=== PATIENT | male | born 1985 | race African-American/Black ===

== ENCOUNTER 2021-04-14 09:55 | Outpatient (REF) | payer OTHER, SELFPAY | END 2021-04-14 09:56 | disposition home or self-care (01) | LOC: HO.LAB 09:55 | PROVIDERS: Visit Provider Internal Medicine | DX: Z20.822 Contact with and (suspected) exposure to COVID-19 (principal) | CPT/HCPCS: C9803; U0003; U0005 ==

== ENCOUNTER 2021-05-05 15:43 | Emergency (ER) | payer OTHER, SELFPAY ==
--- NOTE | ~2021-05-05 | XR_ITS ---
EXAMINATION: XR FINGER, RIGHT CLINICAL INFORMATION: Laceration COMPARISON: None TECHNIQUE: Three views of the right fifth finger. FINDINGS: Alignment is normal. No fracture or dislocation is seen. Joint spaces are normal. There is soft tissue swelling adjacent to the middle phalanx. No soft tissue foreign body is seen. XR/XR finger RT min 2V IMPRESSION: Soft tissue swelling. No fracture or foreign body seen.
[2021-05-05 16:00] VITALS: BP 126/83; PULSE 89; RESP 18; TEMP 36.8; O2SAT 100; BMI 35.6
--- NOTE | 2021-05-05 16:41 | ED_ITS ---
HPI - Wound/Laceration General Chief Complaint: Wound/Laceration Stated Complaint: finger lac Time Seen by Provider: 05/05/21 16:26 Source: patient Mode of arrival: ambulatory Limitations: no limitations History of Present Illness HPI narrative: Patient got a laceration from the hedge tremor to his right 5th finger although to the bone able to move his finger loss sensation to tip of the finger no other injuries unknown last tetanus shot Related Data Previous Rx's Medication Instructions Recorded cephalexin 500 mg capsule 500 mg PO QID 10 Days #40 cap 05/05/21 doxycycline hyclate 100 mg tablet 100 mg PO BID #20 tab 05/05/21 ibuprofen 600 mg tablet 600 mg PO Q6H PRN #20 tab 05/05/21 Allergies Allergy/AdvReac Type Severity Reaction Status Date / Time No Known Allergies Allergy Verified 05/05/21 16:45 Review of Systems Review of Systems: Yes all other systems are reviewed and are negative [facility] Social History Social History Advance Directives: No Advance Directives Information Provided: No Physical Exam Vital Signs: Vital Signs: Last Vital Signs Temp 98.2 F 05/05/21 16:00 Pulse 89 05/05/21 16:00 Resp 18 05/05/21 16:00 BP 126/83 05/05/21 16:00 Pulse Ox 100 05/05/21 16:00 Body Mass Index 35.6 Const: General: cooperative and comfortable HENMT: Head: Yes normocephalic Extrem: Hand/finger images: 1. 3 cm long deep laceration on the lateral aspect of right 5th digit at interphalangeal joint tendons are intact loss of sensation to tip of the finger extensor tendons are intact Procedures Laceration Laceration 1: Site: hand (Right 5th digit) Side (If applicable): right Size (cm): 3 Description: linear Depth: simple, single layer Local Anesthetic: lidocaine 2% Amount of anesthesia used (mL): 4 Skin layer closed with: vicryl Size (cm): 5-0 Number of sutures: 11 Technique: simple, interrupted Subcutaneous layer closed with: chromic gut Size: 5-0 Number of sutures: 3 Technique: simple, interrupted Discharge Plan Discharge Clinical Impression: Laceration Patient Disposition: Home, Self-Care Instructions: Finger Laceration (ED) Additional Instructions: Local care as advised Suture removal in 2 weeks Take antibiotics to avoid infection Report to the ER if increased swelling/ pus discharge/ redness Prescriptions: New cephalexin 500 mg capsule 500 mg PO QID 10 Days Qty: 40 RF: 0 doxycycline hyclate 100 mg tablet 100 mg PO BID Qty: 20 RF: 0 ibuprofen 600 mg tablet 600 mg PO Q6H PRN (Reason: pain) Qty: 20 RF: 0
[2021-05-05] MEDS: Lidocaine HCl 2 % MPF 5 ML VIAL INFILTRATI (18:11)
[2021-05-05] MEDS: Diphth,Pertus(ACell),Tet Adult 0.5 ML SYRINGE IM (18:12)
[2021-05-05] MEDS: cephALEXin 500 MG CAPSULE PO (18:12)
== END 2021-05-05 18:21 | disposition home or self-care (01) ==
PROVIDERS: Emergency Provider Internal Medicine; PCP Internal Medicine
DX: S61.216A Laceration without foreign body of right little finger without damage to nail, initial encounter (principal); S60.416A Abrasion of right little finger, initial encounter; M79.641 Pain in right hand; W26.9XXA Contact with unspecified sharp object(s), initial encounter; Y93.9 Activity, unspecified; Y92.9 Unspecified place or not applicable; Y99.9 Unspecified external cause status; Z79.899 Other long term (current) drug therapy
CPT/HCPCS: 12002; 73140; 90471; 90715; 99283; 99284

== ENCOUNTER 2022-02-15 01:29 | Emergency (ER) | payer OTHER, SELFPAY ==
[2022-02-15 01:37] VITALS: BP 127/85; PULSE 90; RESP 18; TEMP 36.1; O2SAT 98; BMI 36.3
--- NOTE | 2022-02-15 02:59 | ED.SKABFB ---
HPI - Skin/Abscess/Foreign Bdy General Chief complaint: Skin/Abscess/Foreign Body Stated complaint: abscess/bug bite? Time Seen by Provider: 02/15/22 02:59 History of Present Illness HPI narrative: Patient is a 36-year-old male presents today with having a skin lesion in the lower occipital area of his head. No fever no chills no systemic complaints. Patient from home. question bug bite. Question minimal discharge from the wound. Related Data Previous Rx's Medication Instructions Recorded cephalexin 500 mg capsule 500 mg PO QID 10 days #40 caps 05/05/21 doxycycline hyclate 100 mg tablet 100 mg PO BID #20 tabs 05/05/21 ibuprofen 600 mg tablet 600 mg PO Q6H PRN pain #20 tabs 05/05/21 doxycycline hyclate 100 mg capsule 100 mg PO BID cough 7 days #14 caps 02/15/22 Allergies Allergy/AdvReac Type Severity Reaction Status Date / Time No Known Allergies Allergy Verified 05/05/21 16:45 Review of Systems Review of Systems: No fever no chills no systemic complaints Yes all other systems are reviewed and are negative [facility] Past Medical History Attestation statement: The following information was validated with the patient. Social History Social History Advance Directives: No Physical Exam Vital Signs: Vital Signs: Last Vital Signs Temp 97.0 F 02/15/22 01:37 Pulse 90 02/15/22 01:37 Resp 18 02/15/22 01:37 BP 127/85 02/15/22 01:37 Pulse Ox 98 02/15/22 01:37 O2 Del Method 02/15/22 01:37 BMI result Body Mass Index 36.3 Appearance: Alert. Oriented X3. No acute distress. Eyes: Pupils equal, round and reactive to light. ENT: Pharynx normal. Neck: Normal inspection. Neck supple. No lymph nodes noted. No crepitus CVS: Normal heart rate and rhythm. Pulses normal. Normal S1 and S2 Respiratory: No respiratory distress. Breath sounds normal. No Wheezing. No rales Abdomen: Soft and nontender. No rigidity. No distention. good BS x4 Skin: Positive indurated area in the occipital area approximately 3 cm x 3 cm in size. No fluctuance palpable. Area that looks like it previously drained some purulent material. Extremities: No lower extremity edema. Neurovascular intact to all extremities. No Lacerations. No Rash Neuro: Oriented X 3. No motor deficit. No sensory deficit. Moving all extermities. No slurred speech Discharge Plan Discharge Clinical Impression: Cellulitis Patient Disposition: Home, Self-Care Instructions: Cellulitis (ED) Prescriptions: New doxycycline hyclate 100 mg capsule 100 mg PO BID 7 Days Qty: 14 0RF No Action cephalexin 500 mg capsule 500 mg PO QID 10 Days Qty: 40 0RF doxycycline hyclate 100 mg tablet 100 mg PO BID Qty: 20 0RF ibuprofen 600 mg tablet 600 mg PO Q6H PRN (Reason: pain) Qty: 20 0RF Referrals: Gage Lopez MD [Primary Care Provider] -
== END 2022-02-15 03:22 | disposition home or self-care (01) ==
PROVIDERS: Emergency Provider Emergency Medicine Emergency Medical Services; PCP Internal Medicine
DX: L03.811 Cellulitis of head [any part, except face] (principal); Z79.899 Other long term (current) drug therapy
CPT/HCPCS: 99282; 99283

== ENCOUNTER 2022-05-08 19:38 | Emergency (ER) | payer OTHER, SELFPAY ==
[2022-05-08 20:03] VITALS: BP 126/81; PULSE 79; RESP 16; TEMP 36.6; O2SAT 99; BMI 35.6
--- NOTE | 2022-05-08 22:36 | ED_ITS ---
HPI - Medical Clearance General Chief complaint: Medical Clearance Stated complaint: HIV (wants test) Time Seen by Provider: 05/08/22 22:36 Source: patient Mode of arrival: ambulatory Limitations: no limitations History of Present Illness HPI Narrative: Patient is a 36 year old male presenting to the emergency department today requesting to be tested for HIV. Patient states that he has concerns that his has exposed him to something and more specifically, he's worried about being exposed to HIV. Patient would like to be tested for it despite not having any symptoms. Patient states that to his knowledge, his isn't actively infected with anything but he is worried because of some rumors at work he is hearing. Patient denies any dizziness, lightheadedness, abdominal pain, nausea, vomiting, fever, chills, blurry vision, double vision, loss of vision, chest pain, difficulty breathing, shortness of breath, back pain, night sweats, pain with urination, increased urinary frequency, increased urinary urgency, blood in his urine or stool, syncope or a near syncopal episode, recent trauma or falls, bowel incontinence, bladder incontinence, bowel retention, bladder retention, or any other complaints at this time. Associated Symptoms: denies other symptoms Treatments Prior to Arrival: none Related Information Previous Rx's Medication Instructions Recorded cephalexin 500 mg capsule 500 mg PO QID 10 days #40 caps 05/05/21 doxycycline hyclate 100 mg tablet 100 mg PO BID #20 tabs 05/05/21 ibuprofen 600 mg tablet 600 mg PO Q6H PRN pain #20 tabs 05/05/21 doxycycline hyclate 100 mg capsule 100 mg PO BID cough 7 days #14 caps 02/15/22 Allergies Allergy/AdvReac Type Severity Reaction Status Date / Time No Known Allergies Allergy Verified 05/05/21 16:45 Review of Systems Constitutional: Constitutional: Reports no additional constitutional complaints, Denies chills, Denies fever(s) and Denies night sweats Eyes: Eyes: Reports no additional eye complaints, Denies blurry vision, Denies change in vision, Denies diplopia, Denies eye discharge, Denies loss of vision and Denies eye pain ENT: Denies dizziness Cardiovascular: Cardiovascular: Reports no additional cardiovascular complaints, Denies chest pain, Denies lightheadedness, Denies Loss of Consciousness and Denies dyspnea Respiratory: Respiratory: Reports no additional respiratory complaints and Denies dyspnea Gastrointestinal: Gastrointestinal: Reports no additional gastrointestinal complaints, Denies abdominal pain, Denies melena, Denies hematochezia, Denies change in bowel habits and Denies change in stool character Genitourinary: Genitourinary: Reports no additional male genitourinary complaints, Denies hematuria, Denies oliguria, Denies difficulty urinating, Denies dysuria, Denies urinary frequency, Denies urinary hesitancy, Denies urinary incontinence and Denies urinary urgency Musculoskeletal: Musculoskeletal: Reports no additional musculoskeletal complaints, Denies numbness and Denies tingling Neurologic: Denies dizziness, Denies loss of vision, Denies numbness and Denies tingling Psychiatric: Psychiatric: Reports no additional psychiatric complaints Endocrine: Endocrine: Reports no additional endocrine complaints Hematologic/Lymphatic: Hematologic/Lymphatic: Reports no additional hematologic/lymphatic complaints Allergic/Immunologic: Allergic/Immunologic: Reports no additional allergic/immunologic complaints PMFSH Past Medical History Attestation statement: The following information was validated with the patient. Source: old records reviewed Social History Social History Advance Directives: No Advance Directives Information Provided: Yes Physical Exam Vital Signs: Vital Signs: Last Vital Signs Temp 97.9 F 05/09/22 00:00 Pulse 68 05/09/22 00:00 Resp 16 05/09/22 00:00 BP 132/57 L 05/09/22 00:00 Pulse Ox 97 05/09/22 00:00 O2 Del Method 05/09/22 00:00 BMI result Body Mass Index 35.6 Const: General: cooperative, no acute distress, alert and awake Nutritional Appearance: well nourished Orientation/consciousness: patient oriented x3 Limitations: no limitations HEENT: Head: Yes normal to inspection and Yes atraumatic Ears: hearing gr ossly normal bilaterally and external ears normal General nose exam: Normal external nose present, no nasal discharge noted and no epistaxis Face and sinus: Yes normal facial exam, No abrasion and No laceration Mouth: Normal oral and palatal mucosa present, no drooling and no muffled voice Eyes: General: appearance normal, both eyes and all related structures Periorbital: periorbital findings normal Eyelids: Yes eyelids normal Conjunctivae: conjunctivae normal Pupils: Equal, round and reactive pupils present EOM: EOMs intact bilaterally Neck: Neck: Yes normal visual inspection, Yes full ROM and Yes no lymphadenopathy Chest: Chest palpation & inspection: normal inspection of the chest Resp: Effort & Inspection: normal respiratory effort and able to speak in c omplete sentences Auscultation: clear to auscultation bilaterally Cardio: Rate: regular rate Rhythm: regular rhythm GI: Inspection: Yes normal to inspection Palpation (GI): Soft to palpation, not firm, nontender, no guarding and not rigid Neuro: General: patient oriented x3 and moves all extremities Cranial nerves: Yes Equal, round and reactive pupils present Cognition (Neuro): normal cognition Motor exam (neuro): 5/5 motor strength present throughout Sensory Exam: Normal double simultaneous stimulation for sensation Coordination: [id number] test normal Extrem: General: Yes normal to inspection, Yes full ROM and Yes capillary refill normal Psych: Appearance: grossly normal Mental Status: mental status grossly normal Affect: normal affect Attitude: cooperative Thought process: Normal thought process present Thought content: Normal thought content present Insight: Good insight present (Psych) MDM - Medical Clearance MDM Narrative Medical decision making narrative: Patient is a 36 year old male presenting to the emergency department today requesting HIV testing. Patient's physical exam was unremarkable. Patient's blood work is pending. Patient refused to give a urine sample. I explained my physical exam findings as to the patient. I answered all questions asked by the patient. Patient was irate that he had waited in the waiting room for so long and won't have results tonight. I explained to the patient that we would call him with any positive results but that there is no way for us to run his blood work tonight because the individual who runs those tests, is not currently on shift and won't be until the morning. I stressed the importance of the patient taking his medication as prescribed. I stressed the importance of the patient following up with his primary care provider. I stressed the importance of the patient returning to the emergency department immediately if his symptoms were to worsen or if he were to develop any dizziness, shortness of breath, difficulty breathing, chest pain, blurry vision, loss of vision, nausea, vomiting, abdominal pain, fever, chills, back pain, or any other complaints. Patient verbalized agreement and understanding with this treatment plan and discharge. Medical Records Attestation: I reviewed the patient's medical records. Discharge Plan Discharge Clinical Impression: Exposure to HIV Patient Disposition: Home, Self-Care Additional Instructions: We will call you if any of your results are positive. Follow up with your [facility] provider. Return to the emergency department immediately if your symptoms worsen or if you develop any dizziness, shortness of breath, difficulty breathing, chest pain, blurry vision, loss of vision, nausea, vomiting, abdominal pain, fever, chills, back pain, or any other complaints. Prescriptions: No Action cephalexin 500 mg capsule 500 mg PO QID 10 Days Qty: 40 0RF doxycycline hyclate 100 mg tablet 100 mg PO BID Qty: 20 0RF ibuprofen 600 mg tablet 600 mg PO Q6H PRN (Reason: pain) Qty: 20 0RF doxycycline hyclate 100 mg capsule 100 mg PO BID 7 Days Qty: 14 0RF Referrals: [facility] [Provider Group] (Call to establish and follow up with a primary care provider. If you already have a primary care provider, please follow up with them. ) [facility] [Provider Group] (Call to establish and follow up with a primary care provider. If you already have a primary care provider, please follow up with them. ) [facility] [Provider Group] (Call to establish and follow up with a primary care provider. If you already have a primary care provider, please follow up with them. ) Stand Alone Forms: Work/School Release Interventions: ED Discharge Assessment Last Done: 05/09/22 00:17 Print Language: Sami
[2022-05-09] VITALS: BP 132/57; PULSE 68; RESP 16; TEMP 36.6; O2SAT 97
--- NOTE | 2022-05-09 00:28 | PC.NURSE ---
pt upset with not being able to obtain his lab results at this time. pt teaching with provider, and this rn about the way the tests are processed. pt did not provide a urine and was offered to give a sample but those results would not be ready for him. pt is concerned about his work status and needing a note for tonight. night warehouse selector also aware (Flavia).
[2022-05-09 08:36] LABS: HBS Num1 > 1000.00 mIU/mL (0-7.99); HIV AB/AG Nonreactive (Nonreactive); Hepatitis B Core Antibody Nonreactive (Nonreactive); Hepatitis B Surface Antigen Negative (Negative); ~HepC Num1 0.11 S/CO (0.00-0.79); ~Hepatitis B Surface Antibody REACTIVE (Nonreactive); ~Hepatitis C Antibody Nonreactive (Nonreactive)
[2022-05-09 14:23] LABS: HBc Num1 0.08 S/CO (0.00-0.79); HBsAGNum1 0.24 S/CO (0.00-0.99); HIV Num 1 0.07 S/CO (0.00-0.99)
== END 2022-05-09 00:30 | disposition home or self-care (01) ==
PROVIDERS: Physician Assistant Medical; Emergency Provider Internal Medicine
DX: Z20.6 Contact with and (suspected) exposure to human immunodeficiency virus [HIV] (principal); Z79.899 Other long term (current) drug therapy
CPT/HCPCS: 36415; 86704; 86706; 86803; 87340; 87389; 99283

== ENCOUNTER 2024-06-05 09:13 | Day surgery (SDC) | payer OTHER, SELFPAY ==
[2024-06-05] VITALS (7 sets, daily range): BP systolic 121–137; BP diastolic 75–88; PULSE 61–87; RESP 15–16; TEMP 36.3–36.6; O2SAT 96–99; BMI 33.4
[2024-06-05] MEDS: Lactated Ringers 1,000 ML 100 ML IVCONT (09:58)
--- NOTE | 2024-06-05 10:04 | PC.NURSE ---
anesthesia already made aware of farxiga last dose not a full 3 days. took monday about 7pm. pt aware of increased risk and anesthesia agreed to proceed. pt requesting to go ahead.
[2024-06-05 10:05] LABS: Glucose, Whole Blood 227 mg/dL (60-115)
--- NOTE | 2024-06-05 10:50 | P.CONAN_ITS ---
Documented by User: Eula Frost NP 06/04/24 11:02 HPI - Anesthesia Eval Consult details Narrative: 38yo M for Left Lateral and Medial Eye Muscle Recession Medically optimized per PCP Anesthesia Pre-Procedure Meds Is the patient on any of the following meds?: GLP1/DPP4 and SGLT2 Inhib PMFSH Past Medical History Medical History (Updated 06/05/24 @ 09:26 by Maris Rogel, RN) Smoker Diabetes Obese Lumbar disc herniation Depression Hyperlipidemia Surgical History Surgical History (Updated 06/05/24 @ 09:27 by Maris Rogel RN) History of surgery on arm No pertinent past surgical history Social History Social History Patient Tobacco Use Status: Current everyday Tobacco user Tobacco use type: Cigarette Cigarettes Per Day: 20 Use of substances other than those prescribed or required for medical reasons: Yes Substance Use Type Other:: last smoked about 4-5 days ago Substance Use Frequency: Occasionally Are you DNR?: No Advance Directives: No Advance Directives Information Provided: Yes Recently lost weight without trying: No Meds Allergies Allergy/AdvReac Type Severity Reaction Status Date / Time No Known Allergies Allergy Verified 06/05/24 09:26 Home Medications ?Medication ?Instructions ?Recorded ?Confirmed ?Last Taken ?Type alprazolam 0.25 mg tablet 0.25 mg PO TID PRN anxiety 06/04/24 06/04/24 Unknown History dapagliflozin propanediol 10 mg 10 mg PO DAILY 06/04/24 06/04/24 06/02/24 19:00 History tablet (Farxiga) metformin 500 mg tablet,extended 500 mg PO BID 06/04/24 06/04/24 Unknown History release 24 hr semaglutide 0.25 mg or 0.5 mg (2 mg subcut 06/04/24 05/22/24 History mg/3 mL) subcutaneous pen injector (Ozempic) Assessment and Plan Assessment Anesthesia Assessment: Chart Reviewed Documented by User: Maris Hebert DO 06/05/24 11:16 HPI - Anesthesia Eval Anesthesia Pre-Procedure Meds Is the patient on any of the following meds?: GLP1/DPP4 and SGLT2 Inhib If yes to any meds - educate patient: Pt education - increased risk of aspiration and/or euvolemic DKA [facility] Past Medical History Medical History (Updated 06/05/24 @ 09:26 by Maris Rogel, RN) Smoker Diabetes Obese Lumbar disc herniation Depression Hyperlipidemia Family History Family history of problems with anesthesia: No Surgical History Surgical History (Updated 06/05/24 @ 09:27 by Maris Rogel, NICOLASA) History of surgery on arm No pertinent past surgical history History of Problems with Anesthesia: No Social History Social History Patient Tobacco Use Status: Current everyday Tobacco user Tobacco use type: Cigarette Cigarettes Per Day: 20 Use of substances other than those prescribed or required for medical reasons: Yes Substance Use Type Other:: last smoked about 4-5 days ago Substance Use Frequency: Occasionally Are you DNR?: No Advance Directives: No Advance Directives Information Provided: Yes Recently lost weight without trying: No Meds Allergies Allergy/AdvReac Type Severity Reaction Status Date / Time No Known Allergies Allergy Verified 06/05/24 09:26 Home Medications ?Medication ?Instructions ?Recorded ?Confirmed ?Last Taken ?Type alprazolam 0.25 mg tablet 0.25 mg PO TID PRN anxiety 06/04/24 06/04/24 Unknown History dapagliflozin propanediol 10 mg 10 mg PO DAILY 06/04/24 06/04/24 06/02/24 19:00 History tablet (Farxiga) metformin 500 mg tablet,extended 500 mg PO BID 06/04/24 06/04/24 Unknown History release 24 hr semaglutide 0.25 mg or 0.5 mg (2 mg subcut 06/04/24 05/22/24 History mg/3 mL) subcutaneous pen injector (Ozempic) Exam Exam Date and Time: 06/05/24 1050 Height,Weight and Vital Signs: Height 6 ft 1 in Weight 114.759 kg Vital Signs Temperature 97.8 F 06/05/24 09:57 Pulse Rate 87 06/05/24 09:57 Respiratory Rate 15 06/05/24 09:57 Blood Pressure 131/80 06/05/24 09:57 Pulse Oximetry 96 06/05/24 09:57 Oxygen Delivery Method Room Air 06/05/24 09:57 Temperature 97.8 F 06/05/24 09:57 Pulse Rate 87 06/05/24 09:57 Respiratory Rate 15 06/05/24 09:57 Blood Pressure 131/80 06/05/24 09:57 Pulse Oximetry 96 06/05/24 09:57 Oxygen Delivery Method Room Air 06/05/24 09:57 Airway Mallampati Class: I TM Dist: >3cm Neck ROM: Full Loose/Missing/Broken Teeth: No (patient denies any loose or broken teeth) Heart: S1S2 Lungs: CTAB Assessment and Plan Assessment Anesthesia Assessment: Anesthesia Plan Discussed and Chart Reviewed Final Anesthetic Review Family History of Problems with Anesthesia: No History of Problems with Anesthesia: No NPO: Yes ASA Class: II Final Preanesthetic Review: No Changes in Pt Med Stat, Meds/Allgs Chart Reviewed, Consent Obtained/Reviewed and Anes Risks/Benef Reviewed Patient Risk: Low Procedure Risk: Low Anesthetic Plan Anesthetic Plan: GA and Agree w/ Assess. and Plan Disposition: Standard PACU
[2024-06-05] MEDS: oxyCODONE HCl Immed Release 5 MG TABLET PO (12:14)
[2024-06-05] MEDS: Acetaminophen 325 MG TABLET 650 MG PO (12:14)
--- NOTE | 2024-06-05 12:18 | P.OPHTHAL_ITS ---
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 Procedures 1. Recession of left lateral rectus 3 mm 2. Resection of left medial rectus [address] Garrett. Anesthesia general. Complications none. The patient was brought to the operative room placed under general anesthesia. The eyes were prepped and draped in the usual sterile ophthalmic fashion. A lid speculum was placed in the left eye and a peritomy was created around the lateral rectus muscle. The muscle was hooked and secured with a double-armed Vicryl suture. It was disinserted from the globe and reattached to a position 3 mm behind the original insertion. Conjunctiva was closed with interrupted Vicryl sutures. A peritomy was then created around the medial rectus muscle. The muscle was hooked and grasped at the insertion with a muscle clamp. The overlying fascial attachments were dissected free and a 7 mm resection was marked and secured with a double- armed Vicryl suture. The distal muscle was resected and the resection point drawn forward to the insertion using the Vicryl suture. Conjunctiva was closed with interrupted Vicryl sutures. The patient was then awoken from general anesthesia and discharged to postoperative recovery in good condition.
== END 2024-06-05 13:44 | disposition home or self-care (01) ==
PROVIDERS: PCP Internal Medicine; Visit Provider Ophthalmology
PROC: (CPT 67312; principal; 2024-06-05 12:00)
DX: H49.02 Third [oculomotor] nerve palsy, left eye (principal); H50.9 Unspecified strabismus; E78.5 Hyperlipidemia, unspecified; F32.A Depression, unspecified; E11.65 Type 2 diabetes mellitus with hyperglycemia; Z91.148 Patient's other noncompliance with medication regimen for other reason; E66.811 Obesity, class 1; Z68.33 Body mass index [BMI] 33.0-33.9, adult; M51.26 Other intervertebral disc displacement, lumbar region; Z79.84 Long term (current) use of oral hypoglycemic drugs; Z79.85 Long-term (current) use of injectable non-insulin antidiabetic drugs; Z79.899 Other long term (current) drug therapy
CPT/HCPCS: 67312; 82947; J1100; J1596; J1885; J2003; J2250; J2405; J2704; J3010

== ENCOUNTER 2025-05-20 10:53 | Emergency (ER) | payer MEDICAID, SELFPAY ==
--- NOTE | ~2025-05-20 | XR_ITS ---
EXAMINATION: XR LUMBOSACRAL SPINE CLINICAL INFORMATION: pain radiating down R leg COMPARISON: None available. TECHNIQUE: Three views of the lumbosacral spine. FINDINGS: There is normal lumbar lordosis. The vertebral heights and alignment are normal. Is mild loss of L5-S1 disc height. Rest the disc heights are normal. There is no visible acute fracture, dislocation or subluxation seen. The SI joints are symmetrical and normal. No lytic or sclerotic process seen. The soft tissues are normal. XR/XR lumbar spine 2-3V IMPRESSION: Mild degenerative disc changes L5-S1 disc level. Otherwise unremarkable lumbar spine exam. Electronically signed by: Flex Aranda MD 05/20/2025 11:32 AM EDT
--- NOTE | 2025-05-20 11:00 | ED.GENADULT ---
HPI - General Adult General Chief complaint: Back Pain/Injury Stated complaint: lower back pain radiating to legs Time Seen by Provider: 05/20/25 14:42 Source: patient and old records reviewed Mode of arrival: ambulatory Limitations: no limitations History of Present Illness ED Provider: ALLEN BRAR narrative: 39 yo male with PMH of anxiety and DM here with c/o R sided low back pain x 2 days radiating down from buttock to back of leg. No numbness, weakness, no loss of bowel/bladder, no saddle anesthesia. No IVDA, no thinners. No recent fevers. He notes he urinates frequently. MD complaint: sciatica Onset (ago): day(s) (2) Location: back Radiation: extremity Quality: stabbing Relieving factors: immobilization Exacerbating factors: movement Associated symptoms: denies other symptoms Treatments prior to arrival: NSAID Related Data Home Medications ?Medication ?Instructions ?Recorded ?Confirmed alprazolam 0.25 mg tablet 0.25 mg PO TID PRN anxiety 06/04/24 06/04/24 dapagliflozin propanediol 10 mg 10 mg PO DAILY 06/04/24 06/04/24 tablet (Farxiga) metformin 500 mg tablet,extended 500 mg PO BID 06/04/24 06/04/24 release 24 hr semaglutide 0.25 mg or 0.5 mg (2 mg subcut 06/04/24 mg/3 mL) subcutaneous pen injector (Ozempic) Previous Rx's ?Medication ?Instructions ?Recorded diazepam 5 mg tablet (Valium) 5 mg PO TID PRN muscle spasm #10 05/20/25 tabs ibuprofen 600 mg tablet 600 mg PO Q6H PRN pain #30 tabs 05/20/25 lidocaine 5 % topical patch 1 patch topical DAILY #30 ea 05/20/25 Allergies Allergy/AdvReac Type Severity Reaction Status Date / Time No Known Allergies Allergy Verified 05/20/25 11:02 Review of Systems Review of Systems: Constitutional : No Weight loss, No Fever, No Chills, ENT/Mouth : No Hearing loss, No Ear Pain, No Nasal Congestion, No Sinus Pain, No Hoarseness, No sore throat, No Rhinorrhea, No Swallowing Difficulty Cardiovascular : No Chest Pain, No SOB Respiratory : No Cough, No Dyspnea Gastrointestinal : No Nausea, No Vomiting, No Diarrhea, No abdominal Pain, No Hematochezia, No Melena Genitourinary : No Dysuria, No Urinary Frequency, No Hematuria, No Urinary Incontinence, Musculoskeletal : positive back pain Skin : No Skin Lesions, No rash Neuro : No Weakness, No Numbness, No Paresthesias, no loss of bowel or bladder incontinence, no saddle anesthesia Yes all other systems are reviewed and are negative [facility] Past Medical History Attestation statement: The following information was validated with the patient. Source: old records reviewed Medical History Smoker Diabetes Obese Lumbar disc herniation Depression Hyperlipidemia Surgical History History of surgery on arm No pertinent past surgical history Social History Social History Patient Tobacco Use Status: Current everyday Tobacco user Tobacco use type: Cigarette Cigarettes Per Day: 20 Advance Directives: No Advance Directives Information Provided: Yes Do you have a plan to hurt others: No Plan Physical Exam ED Vital Signs: Vital Signs - 24 hr 05/20/25 11:01 05/20/25 16:09 Temperature 98 F 98 F Pulse Rate 86 86 Respiratory Rate 18 18 Blood Pressure 145/93 H 145/93 H Pulse Oximetry 98 98 Oxygen Delivery Method Room Air Room Air BMI result Body Mass Index 35.6 Appearance: Alert. Oriented X3. No acute distress. Eyes: Pupils equal, round and reactive to light. ENT: Pharynx normal. Neck: Normal inspection. Neck supple. CVS: Normal heart rate and rhythm. Pulses normal. Respiratory: No respiratory distress. Breath sounds normal. Abdomen: Soft and nontender. Back: ttp long R PSIS area and buttock Skin: Skin warm and dry. Normal skin color. Extremities: No lower extremity edema. Neuro: Oriented X 3. No motor deficit. No sensory deficit. L5 5/5 bilaterally SILT intact 2+ DTR in patella and achilles, pulses intact Course Course Course Narrative: This is a rapid medical exam performed by Abdullahi Brumfield NP: Additional HPI, ROS, PE not included below will be deferred to primary provider. Patient is a 39y/o M with pmhx T2DM presenting with complaint of lower back pain since Monday, Monday morning couldn't get out of bed. For the past 2 days, pain radiating down right leg. Having R testicular pain, but denies saddle anesthesia, or b/b incontinence. Plan: UA, xray Medications Administered Discontinued Medications Generic Name Dose Route Start Last Admin Trade Name Priyank PRN Reason Stop Dose Admin Ketorolac Tromethamine 30 mg 05/20/25 14:43 05/20/25 15:01 Ketorolac Tromethamine 30 Mg/Ml Vial IM 05/20/25 14:44 30 mg ONCE ONE Administration Medical Decision Making Medical Decision Making MDM Narrative: 39 yo male with DM here with c/o R sciatica pain but no red flags on exam and no cauda equina symptoms he has benign abdominal exam it seems more MSK in nature. He notes he has had some pain go down to the testicle but no abdominal pain and no hematuria. He did not report a rash. At this time the pain seems MSK in nature and hurts to move and walk without pain in testicle in ED. Start on pain control and obtain lumbar xray. UA for any signs of infection given his DM history. Differential Diagnosis Differential Diagnoses: The differential diagnosis associated with the presentation includes lumbar radiculopathy, sciatica Admission/Observation Consideration of admission/observation: Escalation of care including admission/observation considered able to walk no cauda equina symptoms stable for DC Lab Data Labs: Lab Results 05/20/25 Range/Units 14:58 Urine Color Dark Yellow Urine Appearance Clear Urine pH 6.0 (5.0-9.0) Ur Specific [place] >= 1.030 H (1.005-1.025) Urine Protein Trace (Neg-Trace) mg/dL Urine Glucose (UA) 250 H (Negative) mg/dL Urine Ketones Trace (Negative) mg/dL Urine Blood Negative (Negative) Urine Nitrite Negative (Negative) Ur Leukocyte Esterase Small (1+) H (Negative) Urine RBC 0-2 (0-2) /HPF Urine WBC 0-5 (0-5) /HPF Ur Squamous Epith Cells 0-2 (0-2) /HPF Urine Bacteria None Seen (None Seen) Hyaline Casts 0-2 (0-2) /LPF Independent Interpretation I performed an independent interpretation of an: Plain X-Ray (no fx) Radiology Impression Discussion of test interpretation with radiology: I have reviewed the radiologist's reading. External Record Review External record reviewed: Outpatient record Prescription Management I considered prescription management with: Pain Medication and Other Chronic Conditions Patient?s care impacted by: Diabetes Discharge Plan Discharge Clinical Impression: Sciatica Patient Disposition: Home, Self-Care Instructions: Sciatica (ED) Additional Instructions: rest and only gentle activities - okay to take walks no lifting more than 10lbs for 2 weeks return for weakness, loss of control of bowel or bladder, new pain or any other signs, loss of control of bowel or bladder no motrin until tomorrow AM XR/XR lumbar spine 2-3V IMPRESSION: Mild degenerative disc changes L5-S1 disc level. Otherwise unremarkable lumbar spine exam. Prescriptions: New lidocaine 5 % adhesive patch,medicated 1 patch topical DAILY Qty: 30 0RF Rx Instructions: leave on most painful area for up to 12 hrs ibuprofen 600 mg tablet 600 mg PO Q6H PRN (Reason: pain) Qty: 30 0RF diazepam [Valium] 5 mg tablet 5 mg PO TID PRN (Reason: muscle spasm) Qty: 10 0RF Rx Instructions: partial fill is okay No Action alprazolam 0.25 mg tablet 0.25 mg PO TID PRN (Reason: anxiety) metformin 500 mg tablet extended release 24 hr 500 mg PO BID dapagliflozin propanediol [Farxiga] 10 mg tablet 10 mg PO DAILY Ozempic 0.25 mg or 0.5 mg (2 mg/3 mL) pen injector SUBCUT Stand Alone Forms: Work/School Release Interventions: ED Discharge Assessment Last Done: 05/20/25 16:09 Discharge Date/Time: 05/20/25 16:09 Print Language: Kyrgyz
[2025-05-20 11:01] VITALS: BP 145/93; PULSE 86; RESP 18; TEMP 36.6; O2SAT 98; BMI 35.6
[2025-05-20 15:21] LABS: Appearance Urine Clear; Glucose Urine UA 250 mg/dL (Negative); PH 6.0 (5.0-9.0); Specific Gravity - Urine >= 1.030 (1.005-1.025); UMIC TRIGGER UACC YES
[2025-05-20 15:38] LABS: UACC Culture Trigger YES
[2025-05-20 16:09] VITALS: BP 145/93; PULSE 86; RESP 18; TEMP 36.6; O2SAT 98
== END 2025-05-20 16:09 | disposition home or self-care (01) ==
PROVIDERS: Registered Nurse Emergency; Emergency Provider Emergency Medicine; PCP Internal Medicine
DX: M54.41 Lumbago with sciatica, right side (principal); E11.9 Type 2 diabetes mellitus without complications; F17.200 Nicotine dependence, unspecified, uncomplicated; Z71.6 Tobacco abuse counseling
CPT/HCPCS: 72100; 81001; 87086; 87147; 96372; 99283; 99284; J1885

== ENCOUNTER → 2025-05-20 11:02 | Outpatient (BNV) | payer OTHER, SELFPAY | PROVIDERS: PCP Internal Medicine; Visit Provider Radiology Diagnostic Radiology | DX: M47.816 Spondylosis without myelopathy or radiculopathy, lumbar region (principal) | CPT/HCPCS: 72100 ==

== ENCOUNTER 2025-05-22 10:00 | Emergency (ER) | payer OTHER, SELFPAY ==
--- OUTSIDE RECORDS SUMMARY | 2024-05-28 11:00 | XMS_ITS | Encounter Summary ---
Author Organization [facility] [address] Address [address] [place] [address] Care Team Providers Care Straddle Bug Operator Name Role Phone Gage Lopez MD Primary Care Provider Encounter Details Date Type Department Care Team (Late st Contact Info) Description 05/28/2024 11:00 AM EDT Hospital Encounter TH HISTORIC ENCOUNTERS EASTERN CONVERSION ONLY Mara Black, MILAGROS [address] [place] [address] Social History Tobacco Use Types Packs/Day Years [...] as of this encounter Plan of Treatment Not on file documented as of this encounter Goals Goal Patient Goal Type Associated Problems Recent Progress Patient-Stated? Author STG General On track( 024 11:55 AM EST) No Bibi Cowart COTA [...] hooked to hold onto the sheet 5.R control and recovery combat rescue strength >35# -- Progressing 6.QD<=30 -- Progressing PT STG General On track( 024 11:56 AM EST) No Izzy Lombardi PT Note: Short Term Goals increase cervical ROM by >10 deg for flexion/extension increase cervical left rotation ROM by >10 degrees reduce frequency of peripheral tingling sensation in hand PT LTG General On track( 024 11:56 AM EST) No Izzy Lombardi, PT Note: Fpc Goals functional cervical ROM with minimal to no pain for ADLs/IADLs-MET independent HEP to transition to home program- MET documented as of this encounter Visit Diagnoses Not on filedocumented in this encounter Care Teams Straddle Bug Operator Relationship Specialty Start Date End Date Gage Lopez MD PCP - General Internal Medicine 11/22/16 06/04/24 documented as of this encounter
--- NOTE | ~2025-05-22 | XR_ITS ---
EXAMINATION: XR HIP, RIGHT CLINICAL INFORMATION: severe right hip pain COMPARISON: None available. TECHNIQUE: Two views of the right hip and one view of the pelvis. FINDINGS: No fracture. Alignment is anatomic. Hip joint space is maintained. Soft tissues are unremarkable. XR/XR hip RT w PEL1V IMPRESSION: Normal right hip and pelvis. Electronically signed by: Iesha Banerjee MD 05/22/2025 01:02 PM EDT
--- NOTE | ~2025-05-22 | US_ITS ---
EXAMINATION: US TRIPLEX LOWER EXTREMITY, RIGHT CLINICAL INFORMATION: Pain, right lower extremity COMPARISON: None available. TECHNIQUE: Color-flow triplex imaging with spectral analysis and compression Doppler were performed on the right lower extremity. FINDINGS: Respiratory variation, normal compression and augmented flow are demonstrated in the interrogated right common femoral vein, superficial femoral vein, profunda femoral vein, popliteal vein and midcalf peroneal and posterior tibial venous segments.. There is no Smith's cyst. US/US venous duplex LE RT IMPRESSION: No acute deep venous thrombosis interrogated veins, right lower extremity. Negative for DVT. Electronically signed by: Rodney Owens MD 05/22/2025 12:13 PM EDT
[2025-05-22 10:11] VITALS: BP 161/106; BP 168/110; PULSE 85; PULSE 87; RESP 18; TEMP 36.3; O2SAT 97; O2SAT 99; BMI 32.9
--- NOTE | 2025-05-22 10:25 | ED.LOWEXIN ---
HPI - Extremity Injury (Lower) General Chief Complaint: Extremity Injury, Lower Stated Complaint: RT SIDE UPPER LEG PAIN PER EMS Time Seen by Provider: 05/22/25 10:16 Source: patient, EMS, RN notes reviewed and old records reviewed Mode of arrival: EMS Limitations: no limitations History of Present Illness ED Provider: Kenney Prescott PA-C HPI Narrative: 39 yo male with history of DM, anxiety and recently diagnosed sciatica who is presenting to the ER via EMS for evaluation of ongoing right sided hip pain radiating down the right leg w/ associated numbness and tingling in his toes. He was seen here two days ago with similar complaints and treated for probable sciatica with ibuprofen, valium and lidocaine patches. He reports no relief. he states the pain started 1 week ago as a mild ache in the right lower back. On 05/17 the pain became severe and he has been basically unable to ambulate since. he reports severe pain when he attempts to bear weight on the RLE, with pain in the right calf, right posterior thigh and right hip. he was crying and could not get off of the toilet last night. no urinary or bowel issues. no testicular pain. no injury or trauma. MD complaint: hip injury and leg injury Onset (ago): week(s) (1) Injury: Right: hip and thigh Type of Injury: unknown Severity: severe Severity scale (1-10): 10 Relieving factors: nothing Exacerbating factors: weight bearing, movement and palpation Associated symptoms: unable to bear weight Other symptoms: none Related Data Home Medications ?Medication ?Instructions ?Recorded ?Confirmed alprazolam 0.25 mg tablet 0.25 mg PO TID PRN anxiety 06/04/24 06/04/24 dapagliflozin propanediol 10 mg 10 mg PO DAILY 06/04/24 06/04/24 tablet (Farxiga) metformin 500 mg tablet,extended 500 mg PO BID 06/04/24 06/04/24 release 24 hr semaglutide 0.25 mg or 0.5 mg (2 mg subcut 06/04/24 mg/3 mL) subcutaneous pen injector (Ozempic) Previous Rx's ?Medication ?Instructions ?Recorded diazepam 5 mg tablet (Valium) 5 mg PO TID PRN muscle spasm #10 05/20/25 tabs ibuprofen 600 mg tablet 600 mg PO Q6H PRN pain #30 tabs 05/20/25 lidocaine 5 % topical patch 1 patch topical DAILY #30 ea 05/20/25 cyclobenzaprine 10 mg tablet 10 mg PO TID PRN muscle spasm #14 05/22/25 tabs oxycodone 5 mg tablet 5 mg PO BID PRN severe pain (scale 05/22/25 score 7-10) #4 tabs prednisone 20 mg tablet 40 mg (2 x 20 mg) PO DAILY #10 tabs 05/22/25 Allergies Allergy/AdvReac Type Severity Reaction Status Date / Time No Known Allergies Allergy Verified 05/22/25 10:12 Review of Systems Review of Systems: Yes all other systems are reviewed and are negative [facility] Past Medical History Medical History Smoker Diabetes Obese Lumbar disc herniation Depression Hyperlipidemia Surgical History History of surgery on arm No pertinent past surgical history Social History Social History Patient Tobacco Use Status: Current everyday Tobacco user Tobacco use type: Cigarette Cigarettes Per Day: 20 Advance Directives: No Advance Directives Information Provided: No Do you have a plan to hurt others: No Plan Physical Exam Exam: Exam: Appearance: Alert. Oriented X3. No acute distress. HEENT: normal inspection CVS: Normal heart rate and rhythm. Pulses normal. Respiratory: No respiratory distress. Skin: Skin warm and dry. Normal skin color. Normal skin turgor. No rashes. Extremities: normal inspection of the bilateral lower extremities. no LE swelling. soft tissue tenderness of the right proximal calf without erythema or warmth. nontender right thigh. tenderness of the right lateral hip and right SI joint. pain with full extension of the RLE. NV intact distally. nontender lower back. Neuro: Oriented X 3. No motor deficit. No sensory deficit. unable to Vital Signs: Vital Signs: Last Vital Signs Temp 97.7 F 05/22/25 12:37 Pulse 81 05/22/25 12:37 Resp 16 05/22/25 12:37 BP 153/94 H 05/22/25 12:37 Pulse Ox 98 05/22/25 12:37 O2 Del Method Room Air 05/22/25 12:37 BMI result Body Mass Index 32.9 Medications Administered Discontinued Medications Generic Name Dose Route Start Last Admin Trade Name Priyank PRN Reason Stop Dose Admin Acetaminophen 975 mg 05/22/25 10:56 05/22/25 11:07 Acetaminophen 325 Mg Tablet PO 05/22/25 10:57 975 mg ONCE ONE Administration Cyclobenzaprine HCl 10 mg 05/22/25 10:56 05/22/25 11:07 Cyclobenzaprine Hcl 10 Mg Tablet PO 05/22/25 10:57 10 mg ONCE ONE Administration Oxycodone HCl 5 mg 05/22/25 10:56 05/22/25 11:07 Oxycodone Hcl Immed Release 5 Mg Tablet PO 05/22/25 10:57 5 mg ONCE ONE Administration Medical Decision Making Medical Decision Making [facility] Narrative: 39-year-old male with a history of diabetes, anxiety, recently diagnosed sciatica, seen here couple of days ago who presents to the ER for evaluation of worsening right hip, right buttock pain that radiates down the right leg. He is unable to bear weight due to the pain. He completed a course of Valium, ibuprofen and Lidoderm. He reports no improvement in the pain. He has pain in the right calf and right thigh, there is some soft tissue tenderness on palpation no erythema or swelling. He has no chest pain or shortness of breath. Lower extremity ultrasound was done which does not show any evidence of DVT. X-ray of the hip was done in his normal. He has significant tenderness in the SI joint on the right side. He was given a dose of oxycodone, Tylenol, Flexeril. He was able to rest. He was shown a few different exercises/stretches to help decompress the SI joint. We discussed other supportive care measures and different medication options. He would like to do a trial of prednisone to help with the pain. We discussed hyperglycemia associated with steroids and he will modify his diet. We discussed the importance of following up with primary care doctor. At this time is stable for discharge home with plan to follow up with PCP. Differential Diagnosis Differential Diagnoses: The differential diagnosis associated with the presentation includes Inflammatory disorders, malignancy, trauma, osteoporosis, nerve root compression, radiculopathy, plexopathy, degenerative disc disease, disc herniation, spinal stenosis, sacroiliac joint dysfunction, facet joint injury, and less likely infection?like abscess or diskitis Admission/Observation Consideration of admission/observation: Escalation of care including admission/observation considered 2nd visit, severe pain, considered admit for pain control. improved with meds Independent Interpretation I performed an independent interpretation of an: Plain X-Ray and Ultrasound Interpretation: no dvt on U/S xr hip appears normal no acute fx Radiology Impression Discussion of test interpretation with radiology: I have reviewed the radiologist's reading. External Record Review External record reviewed: Outpatient record Prescription Management I considered prescription management with: Pain Medication Chronic Conditions Patient?s care impacted by: Diabetes Critical Care Time Critical Care Time Critical Care Time: No Discharge Plan Discharge Clinical Impression: Sciatica Qualifiers: Laterality: right Qualified Code(s): M54.31 - Sciatica, right side Patient Disposition: Home, Self-Care Instructions: Sciatica (ED), Lower Back Exercises (ED) Additional Instructions: Your hip x-ray was normal. Your ultrasound was negative for DVT. Your pain is likely due to sacroilitis Use ice several times per day for 20 minutes at a time for the next 48 hours. Take medications as prescribed to help with pain and discomfort. Prednisone will make your glucose go up, monitor your glucose and decrease your carb and sugar intake. Take the oxycodone as needed for severe pain only. do not drive after taking this medication. it can be addictive. Follow up with your Primary Care Doctor this week. If your pain worsens, if you develop new numbness, tingling, weakness, loss of function or incontinence call 911 or come back to the ER right away for evaluation. Prescriptions: New cyclobenzaprine 10 mg tablet 10 mg PO TID PRN (Reason: muscle spasm) Qty: 14 0RF prednisone 20 mg tablet 40 mg PO DAILY Qty: 10 0RF oxycodone 5 mg tablet 5 mg PO BID PRN (Reason: severe pain (scale score 7-10)) Qty: 4 0RF Rx Instructions: Partial Fill upon patient request. No Action alprazolam 0.25 mg tablet 0.25 mg PO TID PRN (Reason: anxiety) metformin 500 mg tablet extended release 24 hr 500 mg PO BID dapagliflozin propanediol [Farxiga] 10 mg tablet 10 mg PO DAILY Ozempic 0.25 mg or 0.5 mg (2 mg/3 mL) pen injector SUBCUT lidocaine 5 % adhesive patch,medicated 1 patch topical DAILY Qty: 30 0RF Rx Instructions: leave on most painful area for up to 12 hrs ibuprofen 600 mg tablet 600 mg PO Q6H PRN (Reason: pain) Qty: 30 0RF diazepam [Valium] 5 mg tablet 5 mg PO TID PRN (Reason: muscle spasm) Qty: 10 0RF Rx Instructions: partial fill is okay Referrals: Gage Lopez MD [Primary Care Provider, Internal Medicine] Stand Alone Forms: Work/School Release Print Language: Mauritian
[2025-05-22] MEDS: oxyCODONE HCl Immed Release 5 MG TABLET PO (11:07)
--- NOTE | 2025-05-22 11:09 | PC.NURSE ---
pt medicated per provider. effectiveness pending. pt pending scans to be completed at this time. plan of care ongoing.
[2025-05-22 12:37] VITALS: BP 153/94; PULSE 81; RESP 16; TEMP 36.5; O2SAT 98
--- OUTSIDE RECORDS SUMMARY | 2025-05-22 13:31 | XMS_ITS | Clinical Summary ---
Author Organization Patient Business Ser [facility] Address [address] [place] [address] Care Team Providers Care Will Call Clerk Name Role Phone Gage Lopez MD Primary Care Provider [phone] Medications metFORMIN XR (GLUCOPHAGE-XR) 500 mg 24 hr tablet TAKE 2 TABLETS BY MOUTH TWICE A DAY WITH MEALS 360 tablet 12/03/2024 Active metFORMIN XR (GLUCOPHAGE-XR) 500 mg 24 hr tablet Take 2 tablets (1,000 mg total) by mouth 2 (two) times a day with meals. Active Active Problems Problem Noted Date Diagnosed Date Neck pain 06/17/2024 Neuropathy of forearm, right 05/28/2024 202 4 Encounters Date Type Department Care Team Description 05/21/2025 Results Follow-Up Internal Medicine - [facility] [address] [facility] [place] [id number] Cynthia Iyer MA from Last 3 Months Surgical History Surgery Date Site/Laterality Comments OTHER SURGICAL HISTORY PROCEDURE: DENIES PREVIOUS SURGERY Medical History Medical History Date Comments Infection of skin due to met hicillin resistant Staphylococcus aureus (MRSA) 04/21/2016 DX:Infection of skin due to methicillin resistant Staphylococcus aureus (MRSA); COMMENT: Per [facility] ED report on 04/19/16. Cultured from buttock. D/C on keflex and bactrim Closed displaced fracture of left clavicle 03/27/2020 DX:Closed displaced fracture of left clavicle Hyperlipidemia 10/26/2016 DX:Hyperlipidemi a Uncontrolled type 2 diabetes mellitus with hyperglycemia ([facility] V24, [facility] V28) 06/03/2020 DX:Uncontrolled type 2 diabe eric mellitus with hyperglycemia ([facility]) Genital warts 11/28/2014 DX:Genital warts Depression 01/27/2018 DX:Depression Lumbar disc herniation 03/27/2020 DX:Lumbar disc herniation Pneumothorax on left 03/27/2020 DX:Pneumoth orax on left Family History Medical History Relation Name Comments Diabetes Brother Heart attack Father Coronary artery disease Mother Blindness Neg Hx Cataracts Neg Hx Glaucoma Neg Hx Macular degeneration Neg Hx Strabismus Neg Hx Relation Name Status Comments Brother Alive Father Alive Mother Alive Social History Tobacco Use Types Packs/Day Years [...] on file Sexual Orientation Not on file Obstetrics History Last Filed Vital Signs Vital Sign Reading Time Taken Comments Blood Pressure 131/88 06/03/2024 1:16 PM EDT aut o Pulse 86 06/03/2024 1:16 PM EDT Temperature - - Respiratory Rate - - Oxygen Saturation - - Inhaled Oxygen Concentration - - Weight 115 kg (253 lb 14.4 oz) 06/03/2024 1:16 P M EDT Height 185.4 cm (6' 1 ) 06/03/2024 1:16 PM EDT Body Mass Index 33.5 06/03/2024 1:16 PM EDT Plan of Treatment Health Maintenance Due Date Last Done Comments Diabetes: Annual Foot Exam 1995 Diabetes: Annual Retina Eye Exam 1995 Hepatitis B Vaccines (1 of 3 - 19+ 3-dose series) 2004 HPV Vaccines (1 - 3-dose SCD M series) 2012 Pneumococcal Vaccine: Pediatrics (0 to 5 Years) and At-Risk Patients (6 to 49 Years) (2 of 2 - PCV) 12/14/2017 12/14/2016 HIV Screening 09/01/2020 Hepatitis C Screening 09/01/2020 Social Influencers of Health Screening 09/01/2020 Diabetes: Annual Urine Albumin-Creatinine Ratio (uACR) 07/23/2022 Depression Screening 08/07/2024 Diabetes: Blood Sugar Contro l Test (HGBA1C) 12/02/2024 06/03/2024, 04/03/2024 COVID-19 Vaccine (1 - 2023-2 5 season) 2025 Influenza Vaccine (#1) 2025 Diabetes: Annual GFR (Glomerular Filtration Rate) 06/03/2025 06/03/2024, 04/03/2024 DTaP,Tdap,and Td Vaccines (2 - Td or Tdap) 12/14/2026 12/14/2016 Cholesterol Screening (Lipid Panel) 06/03/2029 06/03/2024 RSV Immunization Adult Patients (1 - 1-dose 75+ series) 2060 HIB Vaccines Aged Out No longer eligi ble based on patient's age to complete this topic Hepatitis A Vaccines Aged Out No long er eligible based on patient's age to complete this topic IPV Vaccines Aged Out No longer eligi ble based on patient's age to complete this topic MMR Vaccines Aged Out No longer eligi ble based on patient's age to complete this topic Meningococcal ACWY Vaccine Aged Out N o longer eligible based on patient's age to complete this topic Meningococcal B Vaccine Aged Out No l onger eligible based on patient's age to complete this topic RSV Immunization Patients Under 20 months Aged Out No longer eligible b ased on patient's age to complete this topic Varicella Vaccines Aged Out No longer eligible based on patient's age to complete this topic Goals Goal Patient Goal Type Associated Problems [...] hooked to hold onto the sheet 5.R business office associate strength >35# -- Progressing 6.QD<=30 -- Progressing PT STG General On track( 024 11:56 AM EST) No Izzy Lombardi PT Note: Short Term Goals increase cervical ROM by >10 deg for flexion/extension increase cervical left rotation ROM by >10 degrees reduce frequency of peripheral tingling sensation in hand PT LTG General On track( 11:56 AM EST) No Izzy Lombardi, PT Note: Half-Way Goals functional cervical ROM with minimal to no pain for ADLs/IADLs-MET independent HEP to transition to home program- MET Procedures Procedure Name Priority Date/Time Associated Diagnosis Comments EXTERNAL XRAY REPORT 05/20/2025 EXTERNAL XRAY REPORT 05/20/2025 from Last 3 Months Results * External Xray Report (05/20/2025) Only the most recent of2 resultswithin the time period is included. Anatomical Region Laterality Modality Radiographic Farzaneh ging us Provider [facility] XR PROCEDURES Final Result from Last 3 Months Care Teams Will Call Clerk Relationship Specialty Start Date End Date Gage Lopez MD [address] [place] [address] PCP - General Internal Medicine 04/08/25
--- OUTSIDE RECORDS SUMMARY | 2025-05-22 13:31 | XMS_ITS | Encounter Summary ---
Author Organization [facility] [employer] Address [address] [place] [address] Care Team Providers Care Dragline Operator Name Role Phone Gage Lopez MD Primary Care Provider [phone] Encounter Details Date Type Department Care Team (Late st Contact Info) Description 05/21/2025 Results Follow-Up Internal Medicine - [facility] [address] [facility] [place] [address] Cynthia Iyer MA Social History Tobacco Use Types Packs/Day Years [...] Progressing LTG 16 visits General On track( 024 11:54 AM EST) No Bibi Cowart COTA [...] hooked to hold onto the sheet 5.R plunket nurse strength >35# -- Progressing 6.QD<=30 -- Progressing PT STG General On track( 024 11:56 AM EST) No Izzy Lombardi, PT Note: Short Term Goals increase cervical ROM by >10 deg for flexion/extension increase cervical left rotation ROM by >10 degrees reduce frequency of peripheral tingling sensation in hand PT LTG General On track( 024 11:56 AM EST) No Izzy Lombardi, PT Note: Senior Living Goals functional cervical ROM with minimal to no pain for ADLs/IADLs-MET independent HEP to transition to home program- MET documented as of this encounter Visit Diagnoses Not on filedocumented in this encounter Care Teams Dragline Operator Relationship Specialty Start Date End Date Gage Lopez MD [address] [place] [address] PCP - General Internal Medicine 04/08/25 documented as of this encounter
--- NOTE | 2025-05-22 13:47 | PC.NURSE ---
pt tolerate crutch training w/o difficulty.
[2025-05-22 13:53] VITALS: BP 153/94; PULSE 81; RESP 16; TEMP 36.5; O2SAT 98
== END 2025-05-22 13:55 | disposition home or self-care (01) ==
PROVIDERS: Emergency Provider Emergency Medicine; PCP Internal Medicine
DX: M54.31 Sciatica, right side (principal); M25.551 Pain in right hip; E11.9 Type 2 diabetes mellitus without complications; E78.5 Hyperlipidemia, unspecified; F17.200 Nicotine dependence, unspecified, uncomplicated; Z71.6 Tobacco abuse counseling
CPT/HCPCS: 73502; 93971; 99284

== ENCOUNTER → 2025-05-22 10:56 | Outpatient (BNV) | payer OTHER, SELFPAY | PROVIDERS: Emergency Provider Emergency Medicine; PCP Internal Medicine; Visit Provider Radiology Diagnostic Radiology | DX: M79.661 Pain in right lower leg (principal); M25.551 Pain in right hip | CPT/HCPCS: 73502; 93971 ==

== ENCOUNTER 2025-05-26 09:48 | Emergency (ER) | payer OTHER, SELFPAY ==
--- NOTE | ~2025-05-26 | XR_ITS ---
EXAMINATION: XR ABDOMEN KUB CLINICAL INDICATION: constipation COMPARISON: None available. TECHNIQUE: AP view of the abdomen. FINDINGS: Bowel gas pattern is normal/nonspecific. There is no focally dilated loop of bowel. There is moderate fecal residue seen throughout the colon and rectum in keeping with constipation. There is no large abdominal mass. There is no organomegaly. There is no abnormal soft tissue calcification. The lung bases are clear. The osseous structures appear normal. XR/XR KUB IMPRESSION: Moderate constipation. No evidence of bowel obstruction. Electronically signed by: Jesse Yang MD 05/26/2025 11:26 AM EDT
--- NOTE | ~2025-05-26 | CT_ITS ---
EXAMINATION: CT ABDOMEN PELVIS WITH IV CONTRAST HISTORY: R hip/low back pain. rad RLQ COMPARISON: There are no prior studies for available comparison. TECHNIQUE: CT scan of the abdomen and pelvis was performed following administration of 85 mL Omnipaque 350 using standard departmental protocol. Coronal and sagittal reformatted images were generated and reviewed. This CT exam was performed with one or more of the following dose reduction techniques: automated exposure control, adjustment of the mA and/or kV according to patient size, use of iterative reconstruction technique. DLP: mGy-cm FINDINGS: LOWER CHEST: There is subsegmental atelectasis at the left lung base. There is no pleural effusion. CARDIOVASCULATURE: The heart is normal in size. There is no pericardial effusion. LIVER: The liver is normal in size and contour. There is a 1.2 cm cyst in the left lobe. The hepatic and portal veins are patent. GALLBLADDER / BILE DUCTS: The gallbladder is unremarkable. There is no intra or extrahepatic biliary ductal dilatation. SPLEEN: The spleen is normal in size. No focal splenic lesion is identified. PANCREAS: The pancreas is unremarkable in appearance. ADRENAL GLANDS: Within normal limits. KIDNEYS/RETROPERITONEUM: No renal calculi are identified. There is no hydronephrosis. No renal masses are identified. LYMPH NODES: No abdominal or pelvic lymphadenopathy. VASCULATURE: The abdominal aorta is normal in caliber. MESENTERY/PERITONEUM: No free fluid. No masses. There is no free intraperitoneal gas. STOMACH: The stomach is collapsed, limiting evaluation. SMALL BOWEL: The small bowel is normal in caliber. COLON: There is a moderate to large amount of stool throughout the colon. APPENDIX: Normal. URINARY BLADDER/PELVIC ORGANS: The urinary bladder is unremarkable. The prostate is normal in size. BONES / SOFT TISSUES: There is unilateral spondylolysis of L5 on the right, without spondylolisthesis. CT/CT abdomen pelvis w IV con IMPRESSION: 1. Moderate to large amount of stool throughout the colon. 2. Unilateral spondylolysis of L5 on the right, without spondylolisthesis. Electronically signed by: Burton Cherry MD 05/26/2025 12:41 PM EDT
[2025-05-26 10:06] VITALS: BP 139/90; PULSE 82; RESP 18; TEMP 37; O2SAT 99; BMI 35.6
--- NOTE | 2025-05-26 10:06 | ED.GENADULT ---
HPI - General Adult General Chief complaint: Back Pain/Injury Stated complaint: R sided sciatica Time Seen by Provider: 05/26/25 10:40 Source: patient, RN notes reviewed and old records reviewed Mode of arrival: ambulatory History of Present Illness ED Provider: Carrol Dean PA-C HPI narrative: 39-year-old male with a past medical history of diabetes, depression, HLD, sciatica, presenting to the ED complaining of right buttock/hip pain radiating down RLE x few weeks. Patient was seen and treated in our ED on 05/20 and 05/22 for similar symptoms, diagnosed/treated for sciatica with multiple medications including ibuprofen, Flexeril, lidocaine, oxycodone, prednisone, & Valium without relief. Reports associated paresthesias to right foot and pain radiating to RLQ. Admits pain exacerbated with movement. Reports constipation without BM x a few days, is still passing flatus. Denies fever, chills, urinary incontinence/retention, history IVDA, hematuria Related Data Home Medications ?Medication ?Instructions ?Recorded ?Confirmed alprazolam 0.25 mg tablet 0.25 mg PO TID PRN anxiety 06/04/24 06/04/24 dapagliflozin propanediol 10 mg 10 mg PO DAILY 06/04/24 06/04/24 tablet (Farxiga) metformin 500 mg tablet,extended 500 mg PO BID 06/04/24 06/04/24 release 24 hr semaglutide 0.25 mg or 0.5 mg (2 mg subcut 06/04/24 mg/3 mL) subcutaneous pen injector (Ozempic) Previous Rx's ?Medication ?Instructions ?Recorded diazepam 5 mg tablet (Valium) 5 mg PO TID PRN muscle spasm #10 05/20/25 tabs ibuprofen 600 mg tablet 600 mg PO Q6H PRN pain #30 tabs 05/20/25 lidocaine 5 % topical patch 1 patch topical DAILY #30 ea 05/20/25 cyclobenzaprine 10 mg tablet 10 mg PO TID PRN muscle spasm #14 05/22/25 tabs oxycodone 5 mg tablet 5 mg PO BID PRN severe pain (scale 05/22/25 score 7-10) #4 tabs prednisone 20 mg tablet 40 mg (2 x 20 mg) PO DAILY #10 tabs 05/22/25 morphine 15 mg immediate release 15 mg PO Q6H PRN pain (scale score 05/26/25 tablet 7-10) 3 days #4 tabs polyethylene glycol 3350 17 17 g PO DAILY PRN constipation 05/26/25 gram/dose oral powder (Miralax) #119 grams Allergies Allergy/AdvReac Type Severity Reaction Status Date / Time No Known Allergies Allergy Verified 05/26/25 10:10 Review of Systems Review of Systems: Yes all other systems are reviewed and are negative Constitutional: Constitutional: Reports as per HPI Neurologic: Denies Sensory deficit (Neuro) [facility] Past Medical History Attestation statement: The following information was validated with the patient. Source: old records reviewed Medical History Smoker Diabetes Obese Lumbar disc herniation Depression Hyperlipidemia Surgical History History of surgery on arm No pertinent past surgical history Social History Social History Patient Tobacco Use Status: Current everyday Tobacco user Tobacco use type: Cigarette Cigarettes Per Day: 20 Advance Directives: No Advance Directives Information Provided: No Physical Exam ED Vital Signs: Vital Signs - 24 hr 05/26/25 10:06 Temperature 98.6 F Pulse Rate 82 Respiratory Rate 18 Blood Pressure 139/90 H Pulse Oximetry 99 Oxygen Delivery Method Room Air BMI result Body Mass Index 35.6 Const General: cooperative, healthy appearing and no acute distress Orientation/consciousness: patient oriented x3 Limitations: no limitations HENMT Head: Yes normal to inspection and Yes atraumatic Ears: hearing grossly normal bilaterally General nose exam: Normal external nose present Face and sinus: Yes normal facial exam Eyes General: appearance normal, both eyes and all related structures EOM: EOMs intact bilaterally Neck Neck: Yes normal visual inspection and Yes no meningeal signs Resp Effort & Inspection: normal respiratory effort and no respiratory distress Auscultation: clear to auscultation bilaterally Cardio Rate: regular rate Heart sounds: S1 normal heart sound present and S2 normal heart sound present GI Inspection: Yes normal to inspection Palpation (GI): Soft to palpation, nontender, no guarding and not rigid General: Yes no CVA tenderness Back/Spine/Pelvis Other: No midline cervical/thoracic/lumbar spinous tenderness/step-off or deformity. + tenderness to palpation noted to right lateral hip/SI joint. No erythema/rash. FROM intact. NV intact distally. Back: no CVA tenderness Skin Rashes: no rashes Wounds: no wounds Neuro Other: Strength intact throughout. No saddle anesthesia. Sensation intact to light touch. Neurovascular intact distally General: patient oriented x3, tone normal and no meningeal signs Cranial nerves: Yes CN's II-XII intact bilaterally Gait exam (Neuro): Normal gait present Sensory Exam: No Sensory deficit (Neuro) Extrem General: Yes normal to inspection, Yes no pedal edema and Yes no calf tenderness Course Course Course Narrative: RME, this is a rapid medical exam performed by Serge Morse please refer to primary provider for complete H&P- 39 old male with a history of diabetes presents for evaluation of continued right lower back pain that radiates in his right leg. He was seen here on 05/20 in 05/22. He is diagnosed with sciatica. He has tried ibuprofen, cyclobenzaprine, lidocaine, oxycodone, prednisone no relief of his symptoms. He reports that his doctor encouraged him to come back further evaluation. The patient does also report right lower abdominal pain. 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 Therefore MRI is not possible. -1139--labs reassuring XR KUB IMPRESSION: Moderate constipation. No evidence of bowel obstruction. 1255--CT abdomen pelvis w IV con IMPRESSION: 1. Moderate to large amount of stool throughout the colon. 2. Unilateral spondylolysis of L5 on the right, without spondylolisthesis. > could be related/causing patient's pain Discussed results with patient. Patient reports symptomatic improvement with medications given in the ED. Is ambulating with steady gait with some discomfort. Discussed at length needed close follow-up with employee benefits specialist and PCP. Results discussed with patient including worrisome signs and symptoms and strict return precautions, and when to return to the emergency department. They verbalized understanding and feel safe for discharge at this time. Medications Administered Discontinued Medications Generic Name Dose Route Start Last Admin Trade Name Freq PRN Reason Stop Dose Admin Cyclobenzaprine HCl 10 mg 05/26/25 10:52 05/26/25 11:46 Cyclobenzaprine Hcl 10 Mg Tablet PO 05/26/25 10:53 10 mg ONCE ONE Administration Sodium Chloride 1,000 mls @ 999 mls/hr 05/26/25 11:00 05/26/25 12:44 Ns IV 05/26/25 12:00 Infused .Q1H1M DEQUAN Infusion Iohexol 100 ml 05/26/25 12:17 05/26/25 12:17 Iohexol 350 Mg/Ml 100 Ml Infus..Btl IV 05/26/25 12:18 85 ml ONCE ONE Administration Morphine Sulfate 4 mg 05/26/25 10:52 05/26/25 11:46 Morphine Sulfate 4 Mg/Ml Cartridge IVPUSH 05/26/25 10:53 4 mg ONCE ONE Administration Protocol Morphine Sulfate 2 mg 05/26/25 12:54 05/26/25 13:08 Morphine Sulfate 4 Mg/Ml Cartridge IVPUSH 05/26/25 12:55 2 mg ONCE ONE Administration Protocol Medical Decision Making Medical Decision Making MDM Narrative: 39-year-old male with a past medical history of diabetes, depression, HLD, sciatica, presenting to the ED complaining of right buttock/hip pain radiating down RLE x few weeks. On exam vitals signs stable, NAD, nontoxic appearing, no midline spinal tenderness throughout or red flag symptoms. Ambulating with steady gait, antalgic. Abdomen soft and nontender. Tenderness elicited to right lateral hip/SI joint. FROM intact. Imaging reviewed from prior visits which include x-rays and ultrasound which were only remarkable for degenerative disc changes. Concern for sciatica/MSK pain/radiculopathy vs disc herniation vs avascular necrosis. Low suspicion for epidural abscess, cord compression, cauda equina, testicular torsion, appendicitis, renal stone, fracture. Lower suspicion for SBO Plan: Labs, UA, CT AP, pain control, re-evaluate Please refer to course for remaining clinical decision making, interpretation of labs/imaging results, and discussions with consultants and/or family members. Differential Diagnosis Differential Diagnoses: The differential diagnosis associated with the presentation includes As above Admission/Observation Consideration of admission/observation: Escalation of care including admission/observation considered Lab Data [facility] Lab Attestation statement: I reviewed the patient's lab results. 05/26/25 10:25 05/26/25 10:25 Labs: Lab Results 05/26/25 05/26/25 Range/Units 10: 11:45 WBC 9.0 (4.8-10.8) X10*3/uL RBC 5.51 (4.60-5.80) X10*6/uL Hgb 16.3 (14.0-18.0) g/dl Hct 47.6 (42.0-52.0) % MCV 86.4 (80.0-98.0) fL MCH 29.6 (27.0-33.0) pg MCHC 34.2 (31.0-36.0) g/dl RDW 12.0 (11.0-16.0) % Plt Count 304 (160-400) X10*3/uL MPV 9.4 (9.4-12.4) fL Immature Gran % (Auto) 0.3 (0.0-0.4) % Neut % (Auto) 83.5 H (45-73) % Lymph % (Auto) 11.8 L (20-40) % [place] % (Auto) 3.9 (2-11) % Eos % (Auto) 0.3 (0-4) % Baso % (Auto) 0.2 (0-2) % Lymph # (Auto) 1.1 L (1.2-4.9) X10*3/uL [place] # (Auto) 0.4 (0.1-1.2) X10*3/uL Eos # (Auto) 0.0 (0.0-0.4) X10*3/uL Baso # (Auto) 0.0 (0.0-0.2) X10*3/uL Abs Immat Gran (auto) 0.03 (0.00-0.03) X10*3/uL Absolute Neuts (auto) 7.5 (2.0-8.3) x10*3/uL Absolute Nucleated RBC 0.000 (0.0-0.012) X10*3/uL Nucleated RBC % (auto) 0.0 (0.0-0.2) /100WBC ESR 3 (0-15) MM/HR Sodium 139 (135-145) mmol/L Potassium 4.4 (3.3-5.1) mmol/L Chloride 101 (96-108) mmol/L Carbon Dioxide 30 H (22-29) mmol/L Anion Gap 12 (12-20) BUN 16 (9-16) mg/dL Creatinine 0.87 (0.5-1.4) mg/dL Estim Creat Clear Calc 156.2 Estimated GFR > 60 Random Glucose 328 H (60-115) mg/dL Calcium 9.1 (8.4-10.2) mg/dL Total Bilirubin 0.3 (0.0-1.0) mg/dL AST 17 (5-37) U/L ALT 19 (0-40) U/L Alkaline Phosphatase 94 (39-117) U/L C-Reactive Protein 0.55 H (< or = 0.50) mg/dL Total Protein 6.8 (6.5-8.0) g/dL Albumin 4.2 (3.5-5.0) g/dL Lipase 21 (8-78) U/L Urine Color Yellow Urine Appearance Clear Urine pH 6.5 (5.0-9.0) Ur Specific [place] >= 1.030 H (1.005-1.025) Urine Protein Negative (Neg-Trace) mg/dL Urine Glucose (UA) >=1000 H (Negative) mg/dL Urine Ketones Trace (Negative) mg/dL Urine Blood Negative (Negative) Urine Nitrite Negative (Negative) Ur Leukocyte Esterase Negative (Negative) Urine RBC 0-2 (0-2) /HPF Urine WBC 0-5 (0-5) /HPF Ur Squamous Epith Cells 0-2 (0-2) /HPF Urine Bacteria None Seen (None Seen) Hyaline Casts 0-2 (0-2) /LPF Radiology Impression Discussion of test interpretation with radiology: I have reviewed the radiologist's reading. External Record Review External record reviewed: Inpatient record, Office record, Outpatient record, Prior outpatient labs, Prior outpatient radiology, Primary care record and Outside ED record Tests considered The following testing was considered but not selected: As above Prescription Management I considered prescription management with: Pain Medication Chronic Conditions Patient?s care impacted by: Diabetes Social Determinants Patient?s care significantly limited by Social Determinants of Health including: Other Social Determinant of Health Critical Care Time Critical Care Time Critical Care Time: Yes Total Critical Care Time: 35 Attestation: I have personally provided critical care time exclusive of time spent on separately billable procedures. Time includes review of lab data, radiology results, discussion with consultants, and monitoring for potential decompensation. Intervention performed as documented. Discharge Plan Discharge Clinical Impression: Spondylolysis of lumbar region, Constipation Patient Disposition: Home, Self-Care Instructions: Back Pain (ED) Additional Instructions: your CT shows constipation as well as Unilateral spondylolysis of L5 on the right, without spondylolisthesis > this can cause chronic back pain. You should follow up with a employee benefits specialist. Please call to make an appointment Continue taking previously prescribed medications. In addition you can take morphine for the next 3 days You are on multiple addictive/sedative medications. Please take only when pain is severe You should also take Tylenol at home If symptoms persist or worsen, pain becomes unbearable, you developed urinary retention or incontinence, or weakness return to the ED Prescriptions: New morphine 15 mg tablet 15 mg PO Q6H PRN (Reason: pain (scale score 7-10)) 3 Days Qty: 4 0RF Rx Instructions: Partial Fill upon patient request. polyethylene glycol 3350 [Miralax] 17 gram/dose powder 17 g PO DAILY PRN (Reason: constipation) Qty: 119 0RF No Action alprazolam 0.25 mg tablet 0.25 mg PO TID PRN (Reason: anxiety) metformin 500 mg tablet extended release 24 hr 500 mg PO BID dapagliflozin propanediol [Farxiga] 10 mg tablet 10 mg PO DAILY Ozempic 0.25 mg or 0.5 mg (2 mg/3 mL) pen injector SUBCUT lidocaine 5 % adhesive patch,medicated 1 patch topical DAILY Qty: 30 0RF Rx Instructions: leave on most painful area for up to 12 hrs ibuprofen 600 mg tablet 600 mg PO Q6H PRN (Reason: pain) Qty: 30 0RF diazepam [Valium] 5 mg tablet 5 mg PO TID PRN (Reason: muscle spasm) Qty: 10 0RF Rx Instructions: partial fill is okay cyclobenzaprine 10 mg tablet 10 mg PO TID PRN (Reason: muscle spasm) Qty: 14 0RF prednisone 20 mg tablet 40 mg PO DAILY Qty: 10 0RF oxycodone 5 mg tablet 5 mg PO BID PRN (Reason: severe pain (scale score 7-10)) Qty: 4 0RF Rx Instructions: Partial Fill upon patient request. Referrals: Donald Choudhury MD, PhD [Physician, Neuro Spine] - 5 days Gage Lopez MD [Primary Care Provider, Internal Medicine] - 2 days Print Language: Hungarian
[2025-05-26 10:43] LABS: MANUAL DIFF FLAG NO
[2025-05-26 10:58] LABS: Hematocrit 47.6 % (42.0-52.0); Hemoglobin 16.3 g/dl (14.0-18.0); Imm Gran Abs Auto 0.03 X10*3/uL (0.00-0.03); Imm Gran Pct Auto 0.3 % (0.0-0.4); Lymphocytes Absolute Auto 1.1 X10*3/uL (1.2-4.9); Mean Corpuscular HGB Conc 34.2 g/dl (31.0-36.0); Mean Corpuscular Hemoglobin 29.6 pg (27.0-33.0); Mean Corpuscular Volume 86.4 fL (80.0-98.0); NRBC Abs Auto 0.000 X10*3/uL (0.0-0.012); NRBC Pct Auto 0.0 /100WBC (0.0-0.2); Platelet Count 304 X10*3/uL (160-400); Red Blood Count 5.51 X10*6/uL (4.60-5.80); White Blood Count 9.0 X10*3/uL (4.8-10.8)
[2025-05-26 11:00] LABS: Alanine Aminotransferase 19 U/L (0-40); Albumin Level 4.2 g/dL (3.5-5.0); Alkaline Phosphatase 94 U/L (39-117); Anion Gap 12 (12-20); Aspartate Amino Transferase 17 U/L (5-37); Blood Urea Nitrogen 16 mg/dL (9-16); Calcium 9.1 mg/dL (8.4-10.2); Carbon Dioxide 30 mmol/L (22-29); Chloride 101 mmol/L (96-108); Creatinine Clr Calc Pharmacy 156.2; Estimated Glomerular Filt Rate > 60; Lipase 21 U/L (8-78); Potassium 4.4 mmol/L (3.3-5.1); Sodium 139 mmol/L (135-145); Total Protein 6.8 g/dL (6.5-8.0)
[2025-05-26 11:53] LABS: Appearance Urine Clear; Glucose Urine UA >=1000 mg/dL (Negative); PH 6.5 (5.0-9.0); Specific Gravity - Urine >= 1.030 (1.005-1.025); UMIC TRIGGER UACC YES
[2025-05-26] MEDS: iohexoL 350 MG/ML 100 ML INFUS..BTL IV (12:17)
[2025-05-26 14:31] VITALS: BP 139/90; PULSE 82; RESP 18; TEMP 37; O2SAT 99
== END 2025-05-26 14:31 | disposition home or self-care (01) ==
PROVIDERS: Physician Assistant; Emergency Provider Emergency Medicine; PCP Internal Medicine
DX: M47.896 Other spondylosis, lumbar region (principal); K59.00 Constipation, unspecified; M25.551 Pain in right hip; R10.31 Right lower quadrant pain; R11.0 Nausea; Z79.899 Other long term (current) drug therapy; F17.210 Nicotine dependence, cigarettes, uncomplicated
CPT/HCPCS: 36415; 74018; 74177; 80053; 81001; 83690; 85025; 85652; 86140; 96361; 96374; 96376; 99284; 99285; J2270; Q9967

== ENCOUNTER → 2025-05-26 10:52 | Outpatient (BNV) | payer OTHER, SELFPAY | PROVIDERS: Emergency Provider Emergency Medicine; PCP Internal Medicine; Visit Provider Radiology Diagnostic Radiology | DX: R10.31 Right lower quadrant pain (principal); M43.06 Spondylolysis, lumbar region; K59.00 Constipation, unspecified | CPT/HCPCS: 74018; 74177 ==

== ENCOUNTER 2025-05-29 09:15 | Emergency (ER) | payer OTHER, SELFPAY ==
--- OUTSIDE RECORDS SUMMARY | 2024-05-28 11:00 | XMS_ITS | Encounter Summary ---
Author Organization [facility] Address [address] [place] [address] Care Team Providers Care Production Laborer Name Role Phone Gage Lopez MD Primary Care Provider [phone] Encounter Details Date Type Department Care Team (Late st Contact Info) Description 05/28/2024 11:00 AM EDT Hospital Encounter TH HISTORIC ENCOUNTERS EASTERN CONVERSION ONLY Mara Black, MILAGROS [address] [place] [id number] Social History Tobacco Use Types Packs/Day Years Used Date Smoking Tobacco: Every Day Cigarettes 1 22.8 Started: 08/07/2002 Smokeless Tobacco: Current Alcohol Use Standard Drinks/Week Comments Not Currently 0 (1 standard drink = 0.6 oz pur e alcohol) Sex and Gender Information Value Date Recorded Sex Assigned at Not on file Legal Sex Male 5:13 AM EST Gender Identity Not on file Sexual Orientation Not on file documented as of this encounter Plan of Treatment Upcoming Encounters Date Type Department Care Team (Late st Contact Info) Description 06/03/2025 10:30 AM EDT Office Visit Internal Medicine - [address] [phone] Gage Lopez MD [address] [place] [id number] 07/21/2025 8:15 AM EST Office Visit Internal Medicine - [facility] [address] [place], [place] [phone] Gage Lopez MD [address] [place], [place] documented as of this encounter Goals Goal Patient Goal Type Associated Problems Recent Progress Patient-Stated? Author STG General On track( 11:55 AM EST) No Bibi Cowart COTA Note: Pt will report pain in R UE<=4/10 -- MET Pt will demonstrate improved FMC hand as evidenced by 9 hole peg test <=40 sec to manipulate utensil. -- MET Pt will demo R UE GMC improved as evidenced by box and blocks >=47 to be able to hang clothes in closet -- Progressing R wrist/forearm improved AROM by 5-10* for increased ease for dressing -- MET QD <=55 -- Progressing LTG 16 visits General On track( 11:54 AM EST) No Bibi Cowart COTA Note: 1.Pt will report pain R UE <=2/10 -- MET 2.Pt will demo improved FMC R hand as evidenced by 9 hole peg test <=30 sec to be able to button shirt -- Progressing 3.Pt will demo R UE GMC improved as evidenced by box and blocks >=52 to be able to perform light home management -- Progressing 4.R UE AROM to be able to fold sheet -- Progressing, pt Mod I for folding sheets by having his thumb hooked to hold onto the sheet 5.R oil burner strength >35# -- Progressing 6.QD<=30 -- Progressing PT STG General On track( 11:56 AM EST) No Izzy Lombardi, PT Note: Short Term Goals increase cervical ROM by >10 deg for flexion/extension increase cervical left rotation ROM by >10 degrees reduce frequency of peripheral tingling sensation in hand PT LTG General On track(11/11/2 024 11:56 AM EST) Izzy Daniel, PT Note: Fluid Dynamicist Goals functional cervical ROM with minimal to no pain for ADLs/IADLs-MET independent HEP to transition to home program- MET documented as of this encounter Visit Diagnoses Not on filedocumented in this encounter Care Teams Production Laborer Relationship Specialty Start Date End Date Gage Lopez MD PCP - General Internal Medicine 11/22/16 06/04/24 documented as of this encounter
--- NOTE | ~2025-05-29 | CT_ITS ---
EXAMINATION: CT HIP WITH CONTRAST, RIGHT CLINICAL INFORMATION: Severe pain, right hip. Fever. COMPARISON: Correlated to right hip x-ray dated May 22, 2025. TECHNIQUE: Contiguous axial images through the right hip using 2 mm collimation following the IV contrast administration 85 cc Omnipaque 350 strength without reported immediate complications. Sagittal and coronal reformatted images acquired. DLP: [address] examination was performed using dose optimization techniques as appropriate, variously including the following: *Automated exposure control *Adjustment of mA and/or kV according to patient size (this includes techniques or standardized protocols for targeted exams where dose is matched to indication/reason for exam; i.e. extremities or head) *Use of iterative reconstruction technique FINDINGS: No acute cortical disruption or malalignment in the right coxofemoral joint. No gross joint effusion. No abnormal enhancing lesion. The muscles are intact. There is a well-corticated 5 mm calcification in the posterior aspect of the proximal diaphysis of the right femur. Nonspecific prominent inguinal lymph nodes. No right inguinal hernia. Sclerosis in the sacroiliac joint. CT/CT hip RT w IV con IMPRESSION: No acute fracture or dislocation. No abnormal enhancement. No joint effusion. Electronically signed by: Rodney Owens MD 05/29/2025 11:13 AM EDT
[2025-05-29 09:17] VITALS: BP 185/116; PULSE 86; RESP 20; TEMP 36.1; O2SAT 100; BMI 35.6
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
[2025-05-29 10:00] LABS: MANUAL DIFF FLAG NO
[2025-05-29 10:04] LABS: Hematocrit 45.4 % (42.0-52.0); Hemoglobin 15.7 g/dl (14.0-18.0); Imm Gran Abs Auto 0.02 X10*3/uL (0.00-0.03); Imm Gran Pct Auto 0.3 % (0.0-0.4); Lymphocytes Absolute Auto 1.5 X10*3/uL (1.2-4.9); Mean Corpuscular HGB Conc 34.6 g/dl (31.0-36.0); Mean Corpuscular Hemoglobin 29.6 pg (27.0-33.0); Mean Corpuscular Volume 85.5 fL (80.0-98.0); NRBC Abs Auto 0.000 X10*3/uL (0.0-0.012); NRBC Pct Auto 0.0 /100WBC (0.0-0.2); Platelet Count 278 X10*3/uL (160-400); Red Blood Count 5.31 X10*6/uL (4.60-5.80); White Blood Count 7.1 X10*3/uL (4.8-10.8)
[2025-05-29 10:07] LABS: INTERNATIONAL NORM RATIO 1.1 (0.9-1.1); Prothrombin Time 12.9 SEC (10.9-12.4)
[2025-05-29 10:17] LABS: Alanine Aminotransferase 12 U/L (0-40); Albumin Level 3.8 g/dL (3.5-5.0); Alkaline Phosphatase 76 U/L (39-117); Anion Gap 12 (12-20); Aspartate Amino Transferase 15 U/L (5-37); Blood Urea Nitrogen 11 mg/dL (9-16); Calcium 8.7 mg/dL (8.4-10.2); Carbon Dioxide 31 mmol/L (22-29); Chloride 103 mmol/L (96-108); Creatinine Clr Calc Pharmacy 169.9; Estimated Glomerular Filt Rate > 60; Potassium 3.6 mmol/L (3.3-5.1); Sodium 142 mmol/L (135-145); Total Protein 6.3 g/dL (6.5-8.0)
[2025-05-29] MEDS: diazePAM 10 MG/2 ML CARTRIDGE 5 MG IVPUSH (10:17)
[2025-05-29] MEDS: iohexoL 350 MG/ML 100 ML INFUS..BTL IV (11:03)
[2025-05-29 11:27] VITALS: BP 123/72; PULSE 60; RESP 18; TEMP 36.3; O2SAT 98
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
--- OUTSIDE RECORDS SUMMARY | 2025-05-29 12:09 | XMS_ITS | Encounter Summary ---
Author Organization [facility] Address [address] [place] [address] Care Team Providers Care Autos Disassembler Name Role Phone Gage Lopez MD Primary Care Provider [phone] Reason for Visit * Reason Onset Date Comments Follow-up 05/23/2025 Encounter Details Date Type Department Care Team (Late st Contact Info) Description 05/23/2025 [facility] [address] [place] [phone] Gage Lopez MD [address] [place] [phone] Social History Tobacco Use Types Packs/Day Years [...] as of this encounter Progress Notes * Alicia Lucas MA - 05/26/2025 9:39 AM EDT Spoke with pt, appt booked 06/03. Pt states he is currently back in ER again. * Alicia Lucas MA - 05/23/2025 2:57 PM EDT Msg left for pt to return my call. When the pt call back, please transfer to [phone] or resend to the message pool. * Thu Beaver - 05/23/2025 2:44 PM EDT Hospital/ER follow up appointment needed Hospital patient was treated at: [facility] Was this only an ER visit or was the patient admitted to the hospital? ER Visit only Date of visit if ER visit only: 05/20 and 05/22 If patient was admitted what was the date of discharge? N/a Reason/diagnosis for visit or stay: pt was seen in the ER due to back pain and numbness that runs from his back down legs to toes. When was the patient told to follow up? ÁLVARO Was visit or stay related to an injury? If yes, what was the date of injury (DOI)? No If yes, was the injury due to: Not 3rd republican related documented in this encounter Plan of Treatment Upcoming Encounters Date Type Department Care Team (Late st Contact Info) Description 06/03/2025 10:30 AM EDT [facility] [address] [place] [address] Gage Lopez MD [address] [place] [phone] 07/21/2025 8:15 AM EST Office Visit Internal Medicine - [address] [phone] Gage Lopez MD [address] [place] [address] documented as of this encounter Goals Goal [...] hooked to hold onto the sheet 5.R container finishing inspector strength >35# -- Progressing 6.QD<=30 -- Progressing PT STG General On track( 11:56 AM EST) No Izzy Lombardi, PT Note: Short Term Goals increase cervical ROM by >10 deg for flexion/extension increase cervical left rotation ROM by >10 degrees reduce frequency of peripheral tingling sensation in hand PT LTG General On track( 11:56 AM EST) No Izzy Lombardi, PT Note: Mechanic Industrial Truck Goals functional cervical ROM with minimal to no pain for ADLs/IADLs-MET independent HEP to transition to home program- MET documented as of this encounter Visit Diagnoses Not on filedocumented in this encounter Care Teams Autos Disassembler Relationship Specialty Start Date End Date Gage Lopez MD [address] [place] [address] PCP - General Internal Medicine 04/08/25 documented as of this encounter
--- OUTSIDE RECORDS SUMMARY | 2025-05-29 12:09 | XMS_ITS | Encounter Summary ---
Author Organization [facility] Address [address] [place] [address] Care Team Providers Care Gas Refrigerator Servicer Name Role Phone Gage Lopez MD Primary Care Provider [phone] Encounter Details Date Type Department Care Team (Late st Contact Info) Description 05/21/2025 Results Follow-Up Internal Medicine - [address] [phone] Cynthia Iyer MA Social History Tobacco Use [...] AM EDT Office Visit Internal Medicine - [address] [phone] Gage Lopez MD [address] [place] [address] 07/21/2025 8:15 AM EST Office Visit Internal Medicine - [address] [place], [place] [phone] Gage Lopez MD [address] [place] [address] documented as of this encounter Goals Goal [...] hooked to hold onto the sheet 5.R community living coach strength >35# -- Progressing 6.QD<=30 -- Progressing PT [facility] General On track( 11:56 AM EST) No Izzy Lombardi, PT Note: Short Term Goals increase cervical ROM by >10 deg for flexion/extension increase cervical left rotation ROM by >10 degrees reduce frequency of peripheral tingling sensation in hand PT LTG General On track( 11:56 AM EST) No Izzy Lombardi, PT Note: Fractionating Still Operator Goals functional cervical ROM with minimal to no pain for ADLs/IADLs-MET independent HEP to transition to home program- MET documented as of this encounter Visit Diagnoses Not on filedocumented in this encounter Care Teams Gas Refrigerator Servicer Relationship Specialty Start Date End Date Gage Lopez MD [address] [place] [address] PCP - General Internal Medicine 04/08/25 documented as of this encounter
--- OUTSIDE RECORDS SUMMARY | 2025-05-29 12:09 | XMS_ITS ---
[facility] Name [facility] Care Team Organization Name Specialty Phone Email Start Date End Da te [facility] Gage Lopez Primary Care 06/14/2022 03/25/20 24
--- OUTSIDE RECORDS SUMMARY | 2025-05-29 12:09 | XMS_ITS | Clinical Summary ---
Author Organization [facility] Address [address] [place] [address] Care Team Providers Care Electrical Technician Name Role Phone Gage Lopez MD Primary Care Provider [phone] Medications metFORMIN XR (GLUCOPHAGE-XR) 500 mg 24 [...] Encounters Date Type Department Care Team Description 05/27/2025 Telephone Internal Medicine - [facility] [address] [place] [phone] Gage Lopez MD 05/23/2025 Telephone [facility] [place] [phone] Gage Lopez MD 05/21/2025 Results Follow-Up Internal Medicine - [facility] [address] [place] [phone] Cynthia Iyer MA from Last 3 Months Surgical History Surgery Date Site/Laterality Comments OTHER SURGICAL HISTORY PROCEDURE: DENIES PREVIOUS SURGERY Medical History Medical History Date Comments Infection of skin due to met hicillin resistant Staphylococcus aureus (MRSA) 04/21/2016 DX:Infection of skin due to methicillin resistant Staphylococcus aureus (MRSA); COMMENT: Adis Urbano ED report on 04/19/16. Cultured from buttock. D/C on keflex and bactrim Closed displaced fracture of left clavicle 03/27/2020 DX:Closed displaced fracture of left clavicle Hyperlipidemia 10/26/2016 DX:Hyperlipidemi a Uncontrolled type 2 diabetes mellitus with hyperglycemia ([facility] V24, [facility] V28) 06/03/2020 DX:Uncontrolled type 2 diabe eric mellitus with hyperglycemia ([facility]) Genital warts 11/28/2014 DX:Genital warts Depression 01/27/2018 [...] 06/03/2024 1:16 PM EDT Plan of Treatment Upcoming Encounters Date Type Department Care Team (Late st Contact Info) Description 06/03/2025 10:30 AM EDT Office Visit [facility] - [facility] [address] [facility] [place] [phone] Gage Lopez MD [address] [place] [address] 07/21/2025 8:15 AM EST Office Visit Internal Medicine - [address] [phone] Gage Lopez MD [address] [place] [address] Health Maintenance Due Date Last Done Comments [...] hooked to hold onto the sheet 5.R tire care manager strength >35# -- Progressing 6.QD<=30 -- Progressing PT STG General On track( 11:56 AM EST) No Izzy Lombardi, PT Note: Short Term Goals increase cervical ROM by >10 deg for flexion/extension increase cervical left rotation ROM by >10 degrees reduce frequency of peripheral tingling sensation in hand PT LTG General On track( 024 11:56 AM EST) No Izzy Lombardi, PT Note: Packaging Engineer Goals functional cervical ROM with minimal to no pain for ADLs/IADLs-MET independent HEP to transition to home program- MET Procedures Procedure Name Priority Date/Time Associated Diagnosis Comments EXTERNAL CT REPORT 05/26/[address] REPORT 05/26/2025 EXTERNAL XRAY REPORT 05/26/2025 EXTERNAL XRAY REPORT 05/26/2025 EXTERNAL XRAY REPORT 05/22/2025 EXTERNAL XRAY REPORT 05/22/2025 EXTERNAL ULTRASOUND REPORT 05/22/2025 EXTERNAL ULTRASOUND REPORT 05/22/2025 EXTERNAL XRAY REPORT 05/20/2025 EXTERNAL XRAY REPORT 05/20/2025 from Last 3 Months Results * External Xray Report (05/26/2025) Only the most recent of6 resultswithin the time period is included. Anatomical Region Laterality Modality Radiographic Farzaneh ging us Provider [facility] XR PROCEDURES Final Result * External CT Report (05/26/2025) Only the most recent of2 resultswithin the time period is included. Anatomical Region Laterality Modality Computed Tomogra phy us Provider [facility] CT PROCEDURES Final Result * External Ultrasound Report (05/22/2025) Only the most recent of2 resultswithin the time period is included. Anatomical Region Laterality Modality Ultrasound us Provider [facility] US PROCEDURES Final Result from Last 3 Months Insurance [facility] Care Teams Electrical Technician Relationship Specialty Start Date End Date Gage Lopez MD [address] [place] [phone] PCP - General Internal Medicine 04/08/25
[2025-05-29 13:14] LABS: Appearance Urine Clear; Glucose Urine UA 100 mg/dL (Negative); PH 7.0 (5.0-9.0); Specific Gravity - Urine >= 1.030 (1.005-1.025)
[2025-05-29 14:34] VITALS: BP 118/88; PULSE 77; RESP 20; TEMP -17.7; TEMP 0; O2SAT 96
== END 2025-05-29 14:35 | disposition home or self-care (01) ==
PROVIDERS: Registered Nurse Emergency; Emergency Provider Emergency Medicine; PCP Internal Medicine
DX: M54.16 Radiculopathy, lumbar region (principal); E11.9 Type 2 diabetes mellitus without complications; Z79.84 Long term (current) use of oral hypoglycemic drugs; Z79.899 Other long term (current) drug therapy
CPT/HCPCS: 36415; 73701; 80053; 81003; 85025; 85610; 85652; 86140; 96374; 96375; 99285; J1171; J1885; J3360; Q9967

== ENCOUNTER → 2025-05-29 09:42 | Outpatient (BNV) | payer OTHER, SELFPAY | PROVIDERS: Emergency Provider Emergency Medicine; PCP Internal Medicine; Visit Provider Radiology Diagnostic Radiology | DX: M25.551 Pain in right hip (principal); R50.9 Fever, unspecified | CPT/HCPCS: 73701 ==